=== PATIENT | female | born 2000 | race African-American/Black ===

== ENCOUNTER 2025-11-09 14:06 | Emergency (ER) | payer OTHER ==
[~2025-11-09] VITALS: Ht 167.6 cm; Wt 116.0 kg
[2025-11-09 14:13] VITALS: O2SAT 100
[2025-11-09] MEDS: ACETAMINOPHEN 500MG TABLET PO ONE (16:12)
[2025-11-09] MEDS: LIDOCAINE 5% PATCH TOP SCH (16:12)
[2025-11-09] MEDS ORDERED: LIDO-53 TP (17:43)
[2025-11-09] MEDS ORDERED: CYCL10TA21 MT (17:43)
[2025-11-09] MEDS ORDERED: IBUP-1455 MT (17:43)
[2025-11-09] MEDS ORDERED: KETOROLAC 30MG/ML VIAL IM ONE (17:45)
[2025-11-09 17:56] VITALS: BP 135/80; PULSE 88; RESP 17; TEMP 36.6; O2SAT 100
== END 2025-11-09 17:57 | disposition home or self-care (01) ==
LOC: ER 14:39
DX: S16.1XXA Strain of muscle, fascia and tendon at neck level, initial encounter (principal); S40.021A Contusion of right upper arm, initial encounter; S09.90XA Unspecified injury of head, initial encounter; R07.89 Other chest pain; F12.90 Cannabis use, unspecified, uncomplicated; J45.909 Unspecified asthma, uncomplicated; W22.09XA Striking against other stationary object, initial encounter; Y93.89 Activity, other specified; Y92.89 Other specified places as the place of occurrence of the external cause; Y99.8 Other external cause status
CPT/HCPCS: 71101; 73060; 99284